=== PATIENT | male | born 1975 | race Caucasian/White ===

== ENCOUNTER → 2018-12-19 | Outpatient (CLI) | payer BC ==
--- NOTE | 2018-12-19 15:11 | US ---
EXAMINATION TYPE: US scrotum with doppler. Grayscale and color Doppler Duplex imaging performed of t bianca scrotum. DATE OF EXAM: 12/19/2018 COMPARISON: NONE CLINICAL HISTORY: N50.9 Disorder of male genital organs. Pt states felling palpable lump left testicl e x 1 month, denies pain EXAM MEASUREMENTS: TESTICLES: Right Testicle: 3.9 x 2.4 x 3.9 cm Left Testicle: 4.1 x 2.0 x 3.3 cm EPIDIDYMIS HEAD: Right Epididymis: 1.4 cm Left Epididymis: 1.4 cm Doppler performed to assess for testicular vascularity; grayscale, color Doppler, spectral Doppler im aging performed, color flow and vascular waveforms noted to both testes Presence of hydroceles: Small amount of fluid surrounding left epi head where pt feels palpable lump Presence of varicoceles: No IMPRESSION: No discrete mass.
== END | disposition home or self-care (01) ==
LOC: RADUSWWP 13:54
PROVIDERS: ATTEND Family Medicine
DX: N50.9 Disorder of male genital organs, unspecified (principal)
CPT/HCPCS: 76870; 93975